=== PATIENT | female | born 2000 | race Caucasian/White ===

== ENCOUNTER 2022-02-22 08:03 | Emergency (ER) | payer BC, MEDICAID ==
[2022-02-22] MEDS ORDERED: diphenhydrAMINE 50 MG/ML SDV IVPUSH ONE (10:40)
[2022-02-22] MEDS ORDERED: Dextrose 5%-Lactated Ringers 1,000 ML IV STA (10:40)
[2022-02-22] MEDS ORDERED: Prochlorperazine 10 MG/2 ML SDV IVPUSH ONE (10:40)
[2022-02-22] MEDS ORDERED: Ketorolac 30 MG/ML SDV IVPUSH ONE (10:40)
[2022-02-22] MEDS ORDERED: Iopamidol 755 Mg/ML 100 ML Bottle IVPUSH ONE (11:12)
== END 2022-02-22 12:04 | disposition home or self-care (01) ==
LOC: MW.ED 08:03
DX: S09.90XA Unspecified injury of head, initial encounter (principal); Z86.16 Personal history of COVID-19; W18.30XA Fall on same level, unspecified, initial encounter; Y93.41 Activity, dancing
CPT/HCPCS: 70450; 70496; 81025; 96361; 96374; 96375; 99284; J0780; J1200; J1885; J7121; Q9967

== ENCOUNTER 2023-11-29 05:27 | Inpatient (IN) | payer MEDICAID ==
[2023-11-29] MEDS ORDERED: Water For Irrigation,Sterile 1,000 ML Container IRR PRN (05:56)
[2023-11-29] MEDS ORDERED: Sodium Chloride 0.9% 10 ML Syringe FLUSH PRN (05:56)
[2023-11-29] MEDS ORDERED: Methylergonovine 0.2 MG/1 ML Amp IM PRN (05:56)
[2023-11-29] MEDS ORDERED: Misoprostol 200 MCG Tab PO PRN (05:56)
[2023-11-29] MEDS ORDERED: Nalbuphine 10 MG/1 ML Vial IVPUSH PRN (05:56)
[2023-11-29] MEDS ORDERED: Sodium Chloride 0.9% 20 ML SDV IV PRN (05:56)
[2023-11-29] MEDS ORDERED: Sodium Chloride 0.9% 2.5 ML Syringe FLUSH PRN (05:56)
[2023-11-29] MEDS ORDERED: Tranexamic Acid IN NACL,ISO-OS 1,000 MG in Premix Bag 1 BAG IV PRN (05:56)
[2023-11-29] MEDS ORDERED: Carboprost Tromethamine 250 MCG/1 mL Vial IM PRN (05:56)
[2023-11-29] MEDS ORDERED: Lidocaine 1% 50 ML MDV INJECT PRN (05:56)
[2023-11-29] MEDS ORDERED: Oxytocin/0.9 % Sodium Chloride 30 UNIT/500 ML BAG IV SCH (06:00)
[2023-11-29 06:46] LABS: HEMATOCRIT 34.4 % (37.0-47.0); HEMOGLOBIN 11.5 g/dL (12.0-16.0); MEAN CORPUSCULAR HEMOGLOBIN 25.6 pg (28.0-32.0); MEAN CORPUSCULAR HGB CONC 33.4 g/dL (32.0-36.0); MEAN CORPUSCULAR VOLUME 76.6 fL (83.0-99.0); MEAN PLATELET VOLUME 12.8 fL (9.4-12.3); PLATELET COUNT,PLT 281 K/uL (150-400); RED BLOOD CELL COUNT 4.49 M/uL (4.10-5.30); WHITE BLOOD CELL COUNT,WBC 14.99 K/uL (3.9-11.3)
[2023-11-29] MEDS: Ondansetron 4 MG/2 ML SDV IVPUSH PRN (08:18)
[2023-11-29] MEDS: Butorphanol 2 MG/ML SDV IVPUSH PRN (08:19)
[2023-11-29] MEDS: Lactated Ringers 1,000 ML IV SCH (09:04)
[2023-11-29] MEDS ORDERED: Ropivacaine HCl/PF 200 ML ONE (09:40)
[2023-11-29] MEDS ORDERED: Phenylephrine HCl In 0.9% NaCl 1 MG/10 ML Syringe ONE (09:40)
[2023-11-29] MEDS ORDERED: Bupivacaine 0.5% 10 ML SDV ONE (09:40)
[2023-11-29] MEDS: Ropivacaine HCl/PF 400 MG in Premix Bag 1 BAG EPIDUR SCH (09:59)
[2023-11-29] MEDS ORDERED: ePHEDrine 50 MG/ML SDV IVPUSH PRN ×2 (10:04)
[2023-11-29] MEDS ORDERED: Bupivacaine 0.5% 10 ML SDV INJECT ONE (10:04)
[2023-11-29] MEDS ORDERED: Phenylephrine HCl In 0.9% NaCl 1 MG/10 ML Syringe IVPUSH PRN (10:04)
[2023-11-29] MEDS ORDERED: ePHEDrine 50 MG/ML SDV IM PRN (10:04)
[2023-11-29] MEDS ORDERED: dexmedeTOMIDine HCl 200 MCG/2 ML SDV EPIDUR SCH (10:15)
[2023-11-29] MEDS: Oxytocin/0.9 % Sodium Chloride 30 UNIT/500 ML BAG IV SCH (10:47)
[2023-11-30 11:03] LABS: HEMATOCRIT 30.2 % (37.0-47.0); HEMOGLOBIN 9.9 g/dL (12.0-16.0)
== END 2023-11-30 21:38 | disposition home or self-care (01) | DRG 807 ==
LOC: MW.OBCHECK 05:27 → MW.OB 05:29 → MW.OBCHECK 07:33 → OBSVTOIN 17:56 → MW.OB 20:56
PROVIDERS: ADMIT Obstetrics & Gynecology; ATTEND Obstetrics & Gynecology
PROC: 10E0XZZ Delivery of Products of Conception, External Approach (ICD-10-PCS; principal; 2023-11-29)
PROC: 0KQM0ZZ Repair Perineum Muscle, Open Approach (ICD-10-PCS; 2023-11-29)
PROC: 3E0R3BZ Introduction of Anesthetic Agent into Spinal Canal, Percutaneous Approach (ICD-10-PCS; 2023-11-29)
PROC: 00HU33Z Insertion of Infusion Device into Spinal Canal, Percutaneous Approach (ICD-10-PCS; 2023-11-29)
DX: O42.02 Full-term premature rupture of membranes, onset of labor within 24 hours of rupture (principal); Z37.0 Single live birth; O69.81X0 Labor and delivery complicated by cord around neck, without compression, not applicable or unspecified; O70.1 Second degree perineal laceration during delivery; Z3A.39 39 weeks gestation of pregnancy; Z90.89 Acquired absence of other organs; Z98.890 Other specified postprocedural states
CPT/HCPCS: 36415; 51702; 59025; 59409; 85014; 85018; 85027; 86592; 86850; 86900; 86901; J0595; J0665; J2371; J2405; J2590; J2795; J7120